=== PATIENT | female | born 1980 ===

== ENCOUNTER 2016-09-17 14:59 | Outpatient (CLI) | payer OTHER | END 2016-09-17 15:00 | disposition home or self-care (01) | LOC: SC 14:59 | PROVIDERS: ATTEND Internal Medicine Pulmonary Disease | DX: G47.00 Insomnia, unspecified (principal); F51.04 Psychophysiologic insomnia; G47.8 Other sleep disorders; G47.10 Hypersomnia, unspecified | CPT/HCPCS: 99203; 99212 ==